=== PATIENT | female | born 1950 | race Caucasian/White ===

== ENCOUNTER 2016-11-15 07:29 | Day surgery (SDC) | payer BC ==
[~2016-11-15] VITALS: Ht 154.9 cm; Wt 74.4 kg
[~2016-11-15 07:29] MED LIST: ADVAIR 100/28 DISKU1 IH; ALBUTEROL0.83 MG/ML IH; CALTRATE-600 W600 MG PO; COZAAR 50MG50 MG/TAB PO; FLUTICASON0.05 MG/Ac NS; LEVOTHYROXINE0.05 MG PO; MULTIPLE VITAMI1 CAP PO; NUTRAVIEW PO; PRO AIR; SINGULAIR 110 MG/TAB PO; VITAMIN D 400400 IU PO
[2016-11-15] MEDS ORDERED: LIPITOR20 MG PO (07:49)
[2016-11-15] MEDS ORDERED: ASPIRIN 81M81 MG/TA2 PO (07:50)
[2016-11-15] MEDS ORDERED: PROAIR HFA0.09 MG/AC IH (07:51)
[2016-11-15] MEDS ORDERED: NITROSTAT0.4 MG/TAB SL (07:51)
[2016-11-15 08:07] VITALS: BP 121/75; PULSE 88; TEMP 97.6
[2016-11-15 09:38] VITALS: BP 107/75; PULSE 85
[2016-11-15 09:53] VITALS: BP 119/53; PULSE 92
[2016-11-15 10:08] VITALS: BP 123/98; PULSE 80
[2016-11-15 10:27] VITALS: BP 110/68; PULSE 76
== END 2016-11-15 10:25 | disposition home or self-care (01) ==
LOC: SDCO 07:29
DX: Z12.11 Encounter for screening for malignant neoplasm of colon (principal); Z86.010 Personal history of colon polyps; Z80.0 Family history of malignant neoplasm of digestive organs; K57.30 Diverticulosis of large intestine without perforation or abscess without bleeding; K64.0 First degree hemorrhoids; E03.9 Hypothyroidism, unspecified; I10 Essential (primary) hypertension; I25.10 Atherosclerotic heart disease of native coronary artery without angina pectoris; Z95.5 Presence of coronary angioplasty implant and graft
CPT/HCPCS: OP; J2250; J3010; J7030

== ENCOUNTER → 2017-04-29 | Outpatient (CLI) | payer MEDICARE, OTHER ==
[~2017-04-29] MED LIST changes: +ASPIRIN 81M81 MG/TA2 PO; +LIPITOR20 MG PO; +NITROSTAT0.4 MG/TAB SL; +PROAIR HFA0.09 MG/AC IH
== END ==
LOC: COL.RAD 13:18
DX: M79.89 Other specified soft tissue disorders (principal)

== ENCOUNTER → 2019-06-19 | Outpatient (CLI) | payer MEDICARE, OTHER | LOC: COL.VAS 09:08 | DX: R60.0 Localized edema (principal); M79.604 Pain in right leg ==